=== PATIENT | male | born 1950 | race American Indian/Alaskan Native ===

== ENCOUNTER 2016-10-15 12:08 | Inpatient (IN) | payer MEDICARE ==
[2016-10-15 13:15] LABS: Basophils % (Auto) 1.4 % (0.0-1.8); Eosinophils % (Auto) 4.4 % (0.0-4.3); Hematocrit 28.3 % (35.5-45.6); Hemoglobin 9.2 gm/dl (11.8-15.2); Mean Corpuscular HGB Conc 33 % (32-34); Mean Corpuscular Hemoglobin 29 pg (28-32); Mean Corpuscular Volume 90 fl (84-94); Platelet Count 195 K/mm3 (140-440); Red Blood Count 3.15 M/mm3 (3.65-5.03); Red Cell Distribution Width 18.8 % (13.2-15.2); White Blood Count 9.5 K/mm3 (4.5-11.0)
--- NOTE | 2016-10-15 13:29 | XRay Report ---
CHEST XRAY, 2 VIEWS: History: Shortness of breath. Findings: There is mild cardiomegaly. Pulmonary vessels are within normal limits. The lungs are clear and fully expanded. No infiltrate, pleural effusion or pneumothorax. Normal thoracic cage. IMPRESSION: Mild cardiomegaly
[2016-10-15 13:59] LABS: Anion Gap TNR mmol/L; BUN/Creatinine Ratio TNR; Blood Urea Nitrogen TNR mg/dL (9-20); Calcium TNR mg/dL (8.4-10.2); Carbon Dioxide TNR mmol/L (22-30); Chloride TNR mmol/L (98-107); Glucose TNR mg/dL (75-100); Potassium TNR mmol/L (3.6-5.0); Sodium TNR mmol/L (137-145)
[2016-10-15 17:27] LABS: BUN/Creatinine Ratio 6.54; Calcium 8.3 mg/dL (8.4-10.2); Chloride 97.7 mmol/L (98-107)
[2016-10-15 17:34] LABS: Potassium 8.4 mmol/L (3.6-5.0)
[2016-10-15] MEDS ORDERED: PROVENTIL IH ONE (17:43)
[2016-10-15] MEDS ORDERED: D50W (25GM) IV ONE (17:48)
[2016-10-15] MEDS ORDERED: CALCIUM GLUCONATE 1,000 MG in NACL 0.9% 100 ML IV ONE (17:48)
[2016-10-15] MEDS ORDERED: SODIUM BICARBONATE IV ONE ×2 (17:48→18:03)
--- NOTE | 2016-10-15 18:32 | Emergency Department Report ---
ED General Adult HPI - General Chief complaint: Dyspnea/Respdistress Stated complaint: SOB Time Seen by Provider: 10/15/16 17:42 Source: patient Mode of arrival: Wheelchair Limitations: No Limitations - History of Present Illness Initial comments: The patient does complain of some shortness of breath and generalized weakness. The reason why he is here is because the dialysis center sent him for evaluation because of the above symptoms. He had missed 3 runs of dialysis. The patient is awake and able to state that he is in the hospital. He gives a variety of explanations as to why he missed dialysis such as he overslept or he got confused as to the day. He is not disoriented at this time. -: Gradual, week(s) - Related Data Home Medications Medication Instructions Recorded Confirmed Last Taken Atenolol [Atenolol] 1 tab PO DAILY 07/20/14 07/26/14 07/26/14 Enalapril Maleate 60 mg PO DAILY 07/20/14 07/26/14 07/26/14 NIFEdipine 90 mg PO DAILY 07/20/14 07/26/14 07/26/14 hydrALAZINE 100 mg PO BID 07/20/14 07/26/14 07/26/14 Allergies Allergy/AdvReac Type Severity Reaction Status Date / Time No Known Allergies Allergy Verified 10/15/16 12:33 ED Review of Systems ROS: Stated complaint: SOB Other details as noted in HPI Constitutional: weakness. denies: chills, fever Eyes: denies: eye pain, eye discharge, vision change ENT: denies: ear pain, throat pain Respiratory: shortness of breath. denies: cough, wheezing Cardiovascular: denies: chest pain, palpitations Endocrine: no symptoms reported Gastrointestinal: denies: abdominal pain, nausea, diarrhea Genitourinary: denies: urgency, dysuria Musculoskeletal: denies: back pain, joint swelling, arthralgia Skin: denies: rash, lesions Neurological: denies: headache, weakness, paresthesias Psychiatric: denies: anxiety, depression Hematological/Lymphatic: denies: easy bleeding, easy bruising ED Past Medical Hx - Past Medical History Hx Hypertension: Yes Hx Heart Attack/AMI: Yes Hx Diabetes: Yes Hx Renal Disease: Yes Hx Asthma: No Hx COPD: No Hx HIV: No - Surgical History Additional Surgical History: FISTULA LEFT ARM. HERNIA REPAIR - Social History Smoking Status: Never Smoker Substance Use Type: None - Medications Home Medications: Home Medications Medication Instructions Recorded Confirmed Last Taken Type Atenolol [Atenolol] 1 tab PO DAILY 07/20/14 07/26/14 07/26/14 History Enalapril Maleate 60 mg PO DAILY 07/20/14 07/26/14 07/26/14 History NIFEdipine 90 mg PO DAILY 07/20/14 07/26/14 07/26/14 History hydrALAZINE 100 mg PO BID 07/20/14 07/26/14 07/26/14 History ED Physical Exam - General Limitations: No Limitations General appearance: alert, in no apparent distress - Head Head exam: Present: atraumatic, normocephalic - Eye Eye exam: Present: normal appearance, PERRL, EOMI. Absent: scleral icterus - ENT ENT exam: Present: normal exam, mucous membranes moist - Neck Neck exam: Present: normal inspection - Respiratory Respiratory exam: Present: decreased breath sounds. Absent: respiratory distress - Cardiovascular Cardiovascular Exam: Present: regular rate, normal rhythm. Absent: systolic murmur, diastolic murmur, rubs, gallop - GI/Abdominal GI/Abdominal exam: Present: soft, normal bowel sounds. Absent: distended, tenderness, guarding, rebound, rigid - Rectal Rectal exam: Present: deferred - Extremities Exam Extremities exam: Present: normal inspection - Back Exam Back exam: Present: normal inspection - Neurological Exam Neurological exam: Present: alert, oriented X3, CN II-XII intact. Absent: motor sensory deficit - Psychiatric Psychiatric exam: Present: normal mood, flat affect - Skin Skin exam: Present: warm, dry, intact, normal color. Absent: rash ED Course Vital Signs 10/15/16 10/15/16 10/15/16 12:15 16:48 16:51 Temperature 98.2 F Pulse Rate 77 70 Pulse Rate [ Anterior Bilateral Throughout] Respiratory 24 16 Rate Respiratory Rate [Anterior Bilateral Throughout] Blood Pressure 105/63 100/63 100/63 O2 Sat by Pulse 96 96 95 Oximetry 10/15/16 10/15/16 10/15/16 17:00 17:11 17:21 Temperature Pulse Rate 68 68 68 Pulse Rate [ Anterior Bilateral Throughout] Respiratory 14 11 L 17 Rate Respiratory Rate [Anterior Bilateral Throughout] Blood Pressure 98/60 98/60 98/60 O2 Sat by Pulse 96 95 96 Oximetry 10/15/16 10/15/16 10/15/16 17:31 17:41 17:51 Temperature Pulse Rate 69 67 68 Pulse Rate [ 70 Anterior Bilateral Throughout] Respiratory 18 16 16 Rate Respiratory 16 Rate [Anterior Bilateral Throughout] Blood Pressure 98/60 98/60 98/60 O2 Sat by Pulse 94 95 100 Oximetry 10/15/16 10/15/16 18:00 18:16 Temperature Pulse Rate 69 Pulse Rate [ Anterior Bilateral Throughout] Respiratory 16 16 Rate Respiratory Rate [Anterior Bilateral Throughout] Blood Pressure 94/64 O2 Sat by Pulse 100 100 Oximetry - Reevaluation(s) Reevaluation #1: Dr. Rodriguez was notified of the patient's electrolytes (severe hyperk). He is being sent to dialysis now. 10/15/16 18:32 Reevaluation #2: Discussed with Dr. Carter. Patient will be admitted to the hospital service. 10/15/16 18:40 Reevaluation #3: Apparently the patient's first blood sample was inadequate. This is the reason why his labs were so late. 10/15/16 18:41 Reevaluation #4: The patient received the family aggressive hyperkalemia cocktail considering his severe hyperkalemia and acidosis. This was amply tolerated. Patient was breathing fine just prior to transfer to dialysis when he was reassessed by me. 10/15/16 18:42 ED Medical Decision Making - Lab Data Result diagrams: 10/15/16 12:47 10/15/16 16:44 Laboratory Results - last 24 hr 10/15/16 10/15/16 10/15/16 12:47 12:47 16:44 WBC 9.5 RBC 3.15 L Hgb 9.2 L Hct 28.3 L MCV 90 MCH 29 MCHC 33 RDW 18.8 H Plt Count 195 Lymph % (Auto) 15.8 Pettis % (Auto) 7.6 H Eos % (Auto) 4.4 H Baso % (Auto) 1.4 Lymph # 1.5 Pettis # 0.7 Eos # 0.4 Baso # 0.1 Seg Neutrophils % 70.8 H Seg Neutrophils # 6.7 Sodium TNR 136 L Potassium TNR 8.4 H* Chloride TNR 97.7 L Carbon Dioxide TNR 17 L Anion Gap TNR 30 BUN TNR 108 H Creatinine TNR 16.5 H Estimated GFR TNR 4 BUN/Creatinine Ratio TNR 6.54 Glucose TNR 132 H Calcium TNR 8.3 L Troponin T TNR - EKG Data -: EKG Interpreted by Me EKG shows normal: sinus rhythm, axis (left axis) Rate: tachycardia - EKG Data Interpretation: nonspecific ST-T wave gabrielle, other (low voltage) - Radiology Data interpreted by me: Cardiomegaly with mild CHF Critical Care Time: Yes Critical care time in (mins) excluding proc time.: 55 Critical care attestation.: If time is entered above; I have spent that time in minutes in the direct care of this critically ill patient, excluding procedure time. ED Disposition Clinical Impression: Hyperkalemia, Metabolic acidosis, increased anion gap, End stage renal failure on dialysis, Medical non-compliance Cardiomyopathy Qualifiers: Cardiomyopathy type: unspecified Qualified Code(s): I42.9 - Cardiomyopathy, unspecified Disposition: DC-09 OP ADMIT IP TO THIS HOSP Is pt being admited?: Yes Does the pt Need Aspirin: Yes Condition: Stable Referrals: PRIMARY CARE, [Primary Care Provider] - 3-5 Days Time of Disposition: 18:44
[2016-10-15] MEDS ORDERED: BABY ASPIRIN PO ONE (18:44)
[2016-10-15] MEDS ORDERED: NACL 0.9% 100 ML IV PRN (19:13)
[2016-10-16] MEDS ORDERED: BABY ASPIRIN PO ONE (01:00)
[2016-10-16] MEDS ORDERED: NACL 0.9% 250ML 250 ML IV ONE (05:34)
--- NOTE | 2016-10-16 05:49 | History and Physical Report ---
History of Present Illness Date of admission: 10/15/16 18:19 Chief complaint: I cant breathe, and they sent me here from dialysis History of present illness: 65 YO Male with ESRD on HD, HTN, PR, DM, presents to ED for evaluation. Pt states that he has been experiencing shortness of breath for the past 5 days with worsening symptoms over the past day. Pt acknowledges missing dialysis for the past week. Pt states the dialysis center staff sent him for evaluation because of the above symptoms. Pt denies fever, chills, CP, Palpitations, NVD, Syncope, Falls, Vertigo, productive cough, or recent ill contacts. Pt seen and evaluated in ED and found to be in respiratory distress. Pt placed on supplemental oxygen, Nephrology team consulted,and patient taken urgently to dialysis suite. Past History Past Medical History: ESRD, hypertension Past Surgical History: hernia repair, Other (AV Fistula) Social history: , lives with family. denies: smoking, alcohol abuse, prescription drug abuse Family history: hypertension Medications and Allergies Allergies Allergy/AdvReac Type Severity Reaction Status Date / Time No Known Allergies Allergy Verified 10/15/16 12:33 Home Medications Medication Instructions Recorded Confirmed Last Taken Type Atenolol [Atenolol] 1 tab PO DAILY 07/20/14 07/26/14 07/26/14 History Enalapril Maleate 60 mg PO DAILY 07/20/14 07/26/14 07/26/14 History NIFEdipine 90 mg PO DAILY 07/20/14 07/26/14 07/26/14 History hydrALAZINE 100 mg PO BID 07/20/14 07/26/14 07/26/14 History Active Meds: Active Medications Sodium Chloride (Nacl 0.9%) 100 mls @ 999 mls/hr IV YUKI PRN PRN Reason: Hypotension Review of Systems All systems: negative Cardiovascular: edema Respiratory: shortness of breath Exam - Constitutional Vitals: Temp Pulse Resp BP Pulse Ox 98.8 F 82 18 98/49 94 10/16/16 00:01 10/16/16 04:05 10/16/16 00:01 10/16/16 00:01 10/16/16 00:01 General appearance: Present: mild distress - EENT Eyes: Present: PERRL ENT: hearing intact, clear oral mucosa - Neck Neck: Present: supple, normal ROM - Respiratory Respiratory effort: labored Respiratory: bilateral: diminished - Cardiovascular Rhythm: regular Heart Sounds: Present: S1 & S2 - Extremities Extremity abnormal: edema Peripheral Pulses: within normal limits - Abdominal General gastrointestinal: Present: soft, non-tender, non-distended, normal bowel sounds Male genitourinary: Present: normal - Integumentary Integumentary: Present: clear, warm, dry - Musculoskeletal Musculoskeletal: generalized weakness - Psychiatric Psychiatric: appropriate mood/affect, intact judgment & insight - Neurologic Neurologic: CNII-XII intact, moves all extremities Results - Labs CBC & Chem 7: 10/15/16 12:47 10/15/16 16:44 Labs: Abnormal lab results 10/15/16 Range/Units 23:56 POC Glucose 143 H (70-105) Assessment and Plan - Patient Problems (1) Acute respiratory failure with hypoxemia Current Visit: Yes Status: Acute Plan to address problem: Supplemental oxygen, nebs, aspiration precautions, supportive care, dialysis for fluid overload (2) End stage renal failure on dialysis Current Visit: Yes Status: Acute Plan to address problem: Nephrology consulted, Urgent dialysis arranged from ED (3) Medical non-compliance Current Visit: Yes Status: Acute Plan to address problem: Pt counseled (4) Metabolic acidosis, increased anion gap Current Visit: Yes Status: Acute Plan to address problem: supportive care, urgent dialysis, repeat bmp (5) Hyperkalemia Current Visit: Yes Status: Acute Plan to address problem: EKG, telemetry monitoring, urgent dialysis. (6) DVT prophylaxis Current Visit: Yes Status: Acute
[2016-10-16] MEDS ORDERED: PROVENTIL IH PRN (05:57)
[2016-10-16] MEDS ORDERED: TYLENOL PO PRN (05:57)
[2016-10-16 06:05] LABS: BUN/Creatinine Ratio 5.6; Calcium 7.8 mg/dL (8.4-10.2); Chloride 96.5 mmol/L (98-107); Potassium 4.9 mmol/L (3.6-5.0)
--- NOTE | 2016-10-16 08:01 | Admit Criteria Form ---
Admission Criteria Documentation: GENERAL ADMISSION CRITERIA (Place 'X' for any and all applicable criteria): Admission is indicated for ANY ONE of the following: [ X]I. Hemodynamic instability as indicated by ANY ONE of the following(1)(2 )(3)(4)(5): [ ]a) Vital sign abnormality not readily corrected by appropriate treatment within 12 to 24 hours indicated by ANY ONE of the following: [ ]i) Hypotension [ ]ii) Symptomatic Tachycardia unresponsive to treatment (eg , analgesia, fluids, sedation as indicated) [ ]iii) Orthostatic vital sign changes unresponsive to treatment (eg, fluids) [X ]b) Vital sign abnormality that is severe indicated by ANY ONE of the following: [ X]i) Inadequate perfusion indicated by ANY ONE of the following: [ ]1) Lactic acidosis (greater than 2 mmol/L) [ ]2) New abnormal capillary refill (greater than 3 seconds) [ X]3) Other metabolic acidosis (arterial pH less than 7.35) not otherwise explained [ ]4) Reduced urine output [ ]5) Altered mental status [ ]6) Myocardial Ischemia [ ]v) Mean arterial pressure[A] less than 60 mm Hg [ ]vi) Mean arterial pressure[A] less than 70 mm Hg after 30 minutes of appropriate treatment (eg, fluid resuscitation) [ ]vii) IV inotropic or vasopressor medication required to maintain adequate blood pressure or perfusion [ ]viii) Sustained heart rate greater than 120 beats per minute in adult or child 6 years or older[B]] [ ]II. Hypertension requiring inpatient treatment as indicated by ANY ONE of the following(6)(7)(8): [ ]a) SBP greater than 220 mm Hg or DBP greater than 120 mm Hg despite treatment [ ]b) SBP greater than 140 mm Hg or DBP greater than 100 mm Hg with evidence of acute end organ damage as indicated by ANY ONE of the following: [ ]i) Encephalopathy [ ]ii) Acute renal failure as indicated by new onset of ANY ONE of the following(9)(10)(11)(12)(13): [ ]1) A 3-fold rise in serum creatinine from baseline [ ]2) Serum creatinine greater than 4 mg/dL ( 354 micromoles/L) with acute rise greater than 0.5 mg/dL (44.2 micromoles/L) [ ]3) Reduction of more than 75% in estimated glomerular filtration rate from baseline [ ]4) Estimated glomerular filtration rate less than 35 mL/min/1.73m2 (0.59 mL/sec/1.73m2) in child up to 18 years of age [ ]5) Cessation of urine output indicated by ALL of the following: [ ]A. Adequate volume status [ ]B. Inadequate urine output as indicated by ANY ONE of the following: [ ]a. Urine output less than 0.3 mL/kg/hr for 24 hours [ ]b. Anuria (urine output less than 0.1 mL/kg/hr) for 12 hours [ ]iii) Aortic dissection [ ]iv) Myocardial ischemia [ ]v) Left ventricular heart failure [ ]vi) Retinal hemorrhage [ ]vii) Other significant finding [ ]c) Hypertension in child requiring inpatient treatment as indicated by ALL of the following(14)(15)(16): [ ]i) Outpatient treatment not effective, not available, or not appropriate [ ]ii) SBP or DBP greater than 95th percentile for age [ ]iii) Evidence of acute end organ damage as indicated by ANY ONE of the following: [ ]1) Altered mental status [ ]2) Acute renal failure as indicated by new onset of ANY ONE of the following(9)(10)(11)(12)(13): [ ]A. A 3-fold rise in serum creatinine from baseline [ ]B. Serum creatinine greater than 4 mg/dL (354 micromoles/L) with acute rise greater than 0.5 mg/dL (44.2 micromoles/L) [ ]C. Reduction of more than 75% in estimated glomerular filtration rate from baseline [ ]D. Estimated glomerular filtration rate less than 35 mL/min/1.73m2 (0.59 mL/sec/1.73m2)in child up to 18 years of age [ ]E. Cessation of urine output indicated by ALL of the following: [ ]a. Adequate volume status [ ]b. Inadequate urine output as indicated by ANY ONE of the following: [ ]1) Urine output less than 0.3 mL/kg/hr for 24 hours [ ]2) Anuria (urine output less than 0.1 mL/kg/hr) for 12 hours [ ]3) Severe headache [ ]4) Visual disturbance [ ]5) Retinal hemorrhage [ ]6) Other significant finding [ ]III. Acute cardiac or peripheral ischemia as indicated by ANY ONE of the following: [ ]a) Acute coronary syndrome(17)(18) [ ]b) Acute peripheral ischemia (eg, pulseless, cool, mottled, or cyanotic extremity)(19) [ ]IV. Cardiac arrhythmias or findings of immediate concern indicated by ANY ONE of the following(20)(21): [ ]a) Heart rhythms that are inherently dangerous or unstable indicated by ANY ONE of the following(22)(23)(24): [ ]i) Resuscitated ventricular fibrillation or cardiac arrest [ ]ii) Ventricular escape rhythm [ ]iii) Sustained ventricular tachycardia (30 seconds or more of ventricular rhythm at greater than 100 beats per minute) [ ]iv) Nonsustained ventricular tachycardia and ANY ONE of the following: [ ]1) Suspected cardiac ischemia as cause or consequence of ventricular tachycardia [ ]2) In setting of acute myocarditis [ ]b) Unstable cardiac conduction defects indicated by ANY ONE of the following(24)(25)(26): [ ]i) Type II second-degree atrioventricular block [ ]ii) Third-degree atrioventricular block [ ]iii) New-onset left bundle branch block with suspected myocardial ischemia [ ]c) Any heart rhythm and ANY ONE of the following(22)(23)(27)(28)( 29): [ ] i) Continuous long-term ECG monitoring needed (eg, initiation of drug requiring monitoring for more than 24 hours) [ ] ii) Patient has automatic implanted cardioverter defibrillator that is repeatedly firing, malfunctioning, or in need of immediate adjustment of settings beyond the scope of ambulatory or observation care. [ ]d) Heart rhythms of concern due to ANY ONE of the following: [ ]i) Hypotension [ ]ii) Respiratory distress [ ]iii) Association with other significant symptoms (eg, bradycardia with syncope or ongoing dizziness, supraventricular tachycardia with chest pain) (27)(28) (30) [ ] V. Severe heart failure as indicated by ANY ONE of the following ( 31)(32): [ ]a) Respiratory distress [ ]b) Hypotension [ ]c) Anasarca (refractory to outpatient therapy) [ ]d) Cardiac arrhythmias of immediate concern [ ]e) Myocardial ischemia [ ]. Respiratory abnormalities, including ANY ONE of the following(33)(34) (35)(36): [ ]a) Respiratory rate greater than 30 breaths per minute unresponsive to treatment [A] [ ]b) New saturation of arterial oxygen less than 90% [ ]c) New partial pressure of carbon dioxide greater than 44 mm Hg ( 5.9 kPa) [ ]d) Supplemental oxygen or respiratory treatments needed that are new or not performable at other levels of care [ ]e) New-onset cyanosis [ ]f) Inability to protect airway [ ]g) Chronic lung disease with severe deterioration (not responsive to emergency and observation care treatment as appropriate) as indicated by ANY ONE of the following(34)(36 ): [ ]i) SaO2 5% below baseline in patient with chronic hypoxemia [ ]ii) New requirement for supplemental oxygen to keep SaO2 at baseline or acceptable level [ ]iii) Required supplemental oxygen performable only in acute inpatient setting [ ]iv) Severe airflow or ventilation abnormalities [ ]v) Previously mobile patient unable to walk between rooms [ ]vi Inability to eat or sleep due to dyspnea [ ]vii) Rapid rate of exacerbation onset [ ]viii) Altered mental status ]VII. Severe airflow or ventilation abnormalities (not responsive to emergency and observation care treatment as appropriate) as indicated by ANY ONE of the following(33)(34)(35)(37): [ ]a) PCO2 greater than 42 mm Hg (5.6 kPa) and pH less than 7.35 (new ) [ ]b) Documented PCO2 increased more than 5 mm Hg (0.7 kPa) from disease baseline [ ]c) Airflow measurements [B] less than 60% of previous best or predicted (eg, peak expiratory flow rate less than 300 L/minute) despite intensive emergent treatment [C] [ ]d) Required respiratory treatments that are performable only in acute inpatient setting [ ]VIII. Impending or actual respiratory arrest ( Also use Respiratory Failure GRG for severe respiratory disease and long-term mechanical ventilation patients) [ ]IX. Neurologic abnormalities, including ANY ONE of the following: [ ]a) New findings that suggest ANY ONE of the following: [ ]i) DIAMOND SORTER infection(38) [ ]ii) Cerebral bleeding, ischemia, or vasospasm(39)(40) [ ]iii) Increased intracranial pressure, hydrocephalus, or cerebral edema(41)(42)(43) [ ]iv) Spinal cord injury(44) [ ]b) Uncontrolled seizures(45) [ ]c) New-onset coma (eg, [place] coma scale score less than 9) or unexplained abnormal mental status (eg, Miguel coma scale score less than 14) [D](41)(46)(47) [ ]X. New-onset severe neurologic findings requiring inpatient care; examples include(42)(48)(49): [ ]a) Papilledema [ ]b) Cerebral edema [ ]c) Mass effect on CT scan [ ]XI. Suspected acute intra-abdominal process with peritoneal signs, abdominal mass, or similar findings (50)(51)(52) [ ]XII. Severe physiologic disorder remaining after emergency or observation level care (as appropriate) as indicated by ANY ONE of the following (53): [ ]a) Significant dehydration [ ]b) Diabetic ketoacidosis [ ]c) Hyperglycemic hyperosmolar state (eg, osmolality greater than 320 mOsm/kg (mmol/kg) [ ]d) Hypoglycemia [ ]e) Other (new) acid-base disorder with pH less than 7.35 or greater than 7.5(54) [ ]f) Thyroid storm (55) [ ]g) Myxedema coma (55) [ ]XIII. Abdominal abnormalities with ANY ONE of the following(56)(57): [ ]a) Absent bowel sounds with complete ileus [ ]b) Signs of intestinal obstruction or peritonitis [E] [ ]c) Nausea and vomiting that cannot be controlled with outpatient or observation care [ ]XIV. Acute renal failure as indicated by new onset of ANY ONE of the following(9)(10)(11)(12)(13): [ ]a) A 3-fold rise in serum creatinine from baseline [ ]b) Serum creatinine greater than 4 mg/dL (354 micromoles/L) with acute rise greater than 0.5 mg/dL (44.2 micromoles/L) [ ]c) Reduction of more than 75% in estimated glomerular filtration rate from baseline [ ]d) Estimated glomerular filtration rate less than 35 mL/min/ 1.73m2 (0.59 mL/sec/1.73m2) in child up to 18 years of age [ ]e) Cessation of urine output indicated by ALL of the following: [ ]i) Adequate volume status [ ]ii) Inadequate urine output as indicated by ANY ONE of the following: [ ]1) Urine output less than 0.3 mL/kg/hr for 24 hours [ ]2) Anuria (urine output less than 0.1 mL/kg/hr) for 12 hours [ ]XV. Significant uremic complications as indicated by ANY ONE of the following(58)(59)(60): [ ]a) Outpatient therapy is ineffective or not feasible for ANY ONE of the following: [ ]i) Severe heart failure [ ]ii) Severehypertension [ ]iii) Pleural effusion [ ]iv) Pericarditis or pericardial effusion [ ]b) Cardiac arrhythmias of immediate concern [ ]c) Intractable nausea or vomiting [ ]d) Recurrent seizures [ ]e) Encephalopathy [ ]f) Bleeding abnormalities (eg, platelet dysfunction) with active (eg, gastrointestinal) bleeding [ ]g) Dialysis indicated before long-term access or ambulatory arrangements can be made [ ]h) Significant metabolic or electrolyte abnormalities (eg, severe acidosis or hyperkalemia) [ ]XVI. High fever or other high-risk infection situation as indicated by ANY ONE of the following(61)(62)(63)(64): [ ]a) Outpatient and observation care antimicrobial treatment unavailable, not effective, or not appropriate [ ]b) Documented bacteremia [ ]c) Temperature greater than 40.5 degrees C (104.9 degrees F) ( oral) [ ]d) Temperature greater than 39.5 degrees C (103.1 degrees F) ( oral) or less than 36 degrees C (96.8 degrees F) (rectal) that does not respond to e treatment and observation care [ ] XVII. Temperature less than 95 degrees F (35 degrees C)(rectal)(65) [ ] XVIII. Severe nutritional abnormalities as indicated by ALL of the following (66)(67): [ ]a) Inability to tolerate or establish sufficient oral or other enteral nutrition in outpatient setting [ ]b) Parenteral nutrition regimen need that must be implemented on inpatient basis [ X] XIX. Severe electrolyte abnormalities indicated by ALL of the following(68 )(69)(70): [ X]a) Electrolytes and associated findings are not as expected for patient baseline or acceptable treatment effects. [ X]b) Severe abnormalities indicated by ANY ONE of the following: [ ]i) Sodium less than 130 mEq/L (mmol/L) (new) [ ]ii)Sodium less than 135 mEq/L (mmol/L) with ANY ONE of the following: [ ]1) Uncorrectable (to near normal or chronic baseline) after trial of outpatient and emergency treatment [ ]2) Altered mental status [ ]3) Seizures [ ]4) Severe medical etiology requiring inpatient management (eg, heart failure, hypovolemia) [ ]iii) Sodium greater than 155 mEq/L (mmol/L) [ ]iv) Sodium greater than 150 mEq/L (mmol/L) with ANY ONE of the following: [ ]1) Uncorrectable (to near normal or chronic baseline) with outpatient and emergency treatment [ ]2) Altered mental status [ ]3) Seizures [ ]4) Severe medical etiology (eg, hypovolemia, diabetes insipidus) [ ]v) Potassium less than 2.5 mEq/L (mmol/L) despite outpatient and emergency treatment [ ]vi) Potassium less than 3 mEq/L (mmol/L) with ANY ONE of the following: [ ]1) Weakness [ ]2) Cardiac abnormality (eg, arrhythmia, conduction disturbance) [ ]3) Cardiac ischemia [ ]4) Ileus [ ]5) Ongoing medical cause requiring inpatient management (eg, acute renal wasting or SIADH) [ ]6) Other severe symptoms [X]vii) Potassium greater than 6.5 mEq/L (mmol/L) [ ]viii) Potassium greater than 5 mEq/L (mmol/L) with ANY ONE of the following: [ ]1) Uncorrectable (to near normal or chronic baseline) with outpatient and emergency treatment [ ]2) Severe ECG findings [F] [ ]3) Acute worsening of renal failure (creatinine greater than 2.5 mg/dL (221 micromoles/L) or significant elevation for age and size) [ ]4) Severe weakness [ ]5) Severe medical etiology (eg, hemolysis, infection, drug overdose) [ ]ix) Calcium less than 7 mg/dL (1.75 mmol/L) despite outpatient and emergency treatment (72) [ ]x) Calcium less than 8 mg/dL (2 mmol/L) with significant symptoms or findings; examples include(72): [ ]1) Altered mental status [ ]2) Muscle spasms [ ]3) Seizures [ ]4) Breathing difficulty [ ]5) Cardiac abnormality (eg, arrhythmia or conduction disturbance) [ ]xi) Calcium greater than 14 mg/dL (3.5 mmol/L)(72) [ ]xii) Calcium greater than 12 mg/dL (3 mmol/L) with ANY ONE of the following(72): [ ]1) Uncorrectable (to near normal or chronic baseline) with outpatient and emergency treatment [ ]2) Significant dehydration or hypovolemia as indicated by ALL of the following(70)(73)(74): [ ]A. Not resolved with initial treatments [ ]B. Clinically significant dehydration as indicated by ANY ONE of the following: [ ]a. Vomiting refractory to outpatient treatment (ie, precluding oral rehydration) [ ]b. Inability to drink [ ]c. Hypernatremia or other electrolyte abnormality unable to be corrected with outpatient and emergency treatment [ ]d. Failure to remain hydrated with outpatient therapy [ ]e. Reduced urine output [ ]f. Hypotension [ ]g. Serious cause for dehydration requiring acute hospitalization (eg, bowel obstruction, increased intracranial pressure, infectious cause) [ ]h. Child with ANY ONE of the following(75): [ ]1) Severe abdominal tenderness [ ]2) Adequate care not available at home [ ]3) Severe dehydration ( greater than 9% loss of body weight) [ ]4) Significant symptoms or findings; examples include: [ ]A. Altered mental status [ ]B. Cardiac abnormality (eg, arrhythmia, conduction disturbance) [ ]C. Malignant etiology requiring inpatient treatment [ ]xiii) Phosphorus less than 1 mg/dL (0.32 mmol/L) [ ]xiv) Phosphorus less than 1.5 mg/dL (0.48 mmol/L) with ANY ONE of the following: [ ]1) Patient unresponsive to outpatient and emergency treatment [ ]2) Significant symptoms or findings; examples include: [ ]A. Weakness [ ]B. Altered mental status [ ]C. Breathing difficulty [ ]D. Seizures [ ]E. Rhabdomyolysis [ ]xv) Phosphorus greater than 10 mg/dL (3.2 mmol/L) [ ]xvi) Phosphorus greater than 4.5 mg/dL (1.45 mmol/L) (new) with ANY ONE of the following: [ ]1) Severe medical etiology (eg, crush injury, acute renal failure) [ ]2) Associated hypocalcemia with significant findings; examples include: [ ]A. Neurologic symptoms [ ]B. Altered mental status [ ]C. Muscle spasms [ ]D. Seizures [ ]E. Breathing difficulty [ ]F. Cardiac abnormality (eg, arrhythmia, conduction disturbance) [ ]xvii) Magnesium less than 1 mg/dL (0.41 mmol/L) [ ]xviii) Magnesium less than 1.5 mg/dL (0.62 mmol/L) with ANY ONE of the following: [ ]1) Patient unresponsive to outpatient and emergency treatment [ ]2) Associated hypocalcemia with significant findings; examples include: [ ]A. Altered mental status [ ]B. Muscle spasms [ ]C. Seizures [ ]D. Breathing difficulty [ ]E. Cardiac abnormality (eg, arrhythmia , conduction disturbance) [ ]3) Associated hypokalemia (potassium less than 3 mEq/L (mmol/L)) with risk of arrhythmia [ ]xix) Magnesium greater than 4 mEq/L (2 mmol/L) [ ]xx) Magnesium greater than 2.5 mEq/L (1.25 mmol/L) with significant symptoms or findings; examples include: [ ]1) Weakness [ ]2) Altered mental status [ ]3) Cardiac abnormality (eg, arrhythmia, conduction disturbance) [ ]4) Breathing difficulty [ ]5) Severe medical etiology (eg, renal failure, hypovolemia) [ ]xxi) Uric acid greater than 20 mg/dL (1190 micromoles/L)(76) [ ]xxii) Uric acid greater than 8 mg/dL (476 micromoles/L) with significant symptoms or findings of tumor lysis syndrome; examples include(76): [ ]1) Creatinine greater than 1.5 times upper limit of normal [ ]2) Cardiac abnormality (eg, arrhythmia, conduction disturbance) [ ]3) Seizure [ ]XX. Acute blood loss causing significant abnormality as indicated by ANY ONE of the following(77)(78): [ ]a) Hemoglobin less than 10 g/dL (100 g/L) (not baseline) [ ]b) Hematocrit less than 30% (0.30) (not baseline) [ ]c) Repeat hematocrit decreased more than 2% (0.02) [ ]d) Uncontrolled bleeding [ ]XXI. Severe anemia indicated by ANY ONE of the following(78)(79): [ ]a) Altered mental status [ ]b) Chest pain [ ]c) Exertional dyspnea [ ]d) Syncope [ ]e) Other findings suggesting inadequate perfusion [ ]f) Treatment with transfusion or volume replacement is ineffective at resolving ANY ONE of the following [G]: [ ]i) Tachycardia for age [ ]ii) Orthostatic vital sign changes as indicated by ANY ONE of the following(80): [ ]1) Fall in SBP of 20 mm Hg or more 1 to 3 minutes after patient sits or stands from recumbent position [ ]2) Fall in DBP of 10 mm Hg or more 1 to 3 minutes after patient sits or stands from recumbent position [ ]XXII. High-risk low platelet count as indicated by ANY ONE of the following( 81)(82): [ ]a) Severe or life-threatening bleeding (eg, intracranial, major gastrointestinal, or extensive mucosal bleeding), with any reduced platelet count [ ]b) Platelet count less than 20,000/mm3 (20 x109/L) with any active bleeding [ ]c) Platelet count less than 10,000/mm3 (10 x109/L) with minor purpura or petechiae [ ]d) Platelet count less than 5000/mm3 (5 x109/L) [ ]e) Low platelet count with hemolytic anemia [ ]XXIII. Disseminated intravascular coagulation(77)(83) [ ]XXIV. Severe adverse drug or systemic toxin reaction requiring inpatient treatment; examples include(84)(85): [ ]a) Serotonin syndrome(86) [ ]b) Neuroleptic malignant syndrome(86) [ ]c) Cholinergic syndrome with severe symptoms (eg, bronchorrhea, weakness, mental status changes, seizures) [ ]d) Sympathetic syndrome with severe symptoms (eg, seizures, mental status changes, cardiac dysrhythmias) [ ]e) Anticholinergic syndrome [ ]XXV. Severe pain requiring acute inpatient management as indicated by ALL of the following (87)(88)(89): [ ]a) Continuous or frequent (eg, every 2 to 4 hours) parenteral analgesics required [H] [ ]b) Rapid improvement expected from treatment or acute intervention (eg, surgery, anesthesia procedure) [ ]XXVI.Severe behavioral health issues judged unmanageable at a lower level of care (eg, residential) in a patient who is ANY ONE of the following(91) [ ]a) Acutely suicidal [ ]b) A danger to self (eg, self-mutilating or suicidal behavior) [ ]c) A danger to others (eg, assaultive or homicidal behavior) [ ]d) Incapacitated because of grave disability (eg, inability to provide for self at lower level of care) (92) [ ]XXVII. Inpatient monitoring needed; examples include(1)(3)(87)(93)(94)(95)(96 ): [ ]a) Vital signs, neurologic signs, or vascular checks more frequently than every 4 hours [ ]b) Cardiac or respiratory monitoring beyond the scope (eg, over 24 hours) of observation care [ ]c) Pulmonary artery catheter monitoring [ ]d) Suspected compartment syndrome(97) (98) [ ]e) Cerebral bleeding, hydrocephalus, or vasospasm monitoring [ ]f) Increased intracranial pressure or cerebral edema monitoring [ ]g) monitoring [ ]XXVIII. Treatment requiring inpatient care; examples include: [ ]a) IV fluid to replace significant ongoing losses (greater than 3 L/m2 per day)(53) [ ]b) High concentration oxygen (greater than 40%)(33)(99)(100) [ ]c) Frequent respiratory therapy (more frequently than every 4 hours) to maintain airflow rates greater than 60% of baseline(33)(99)(100) [ ]d) Epidural analgesia(87) [ ]e) IV anticoagulation, vasoactive, or antiarrhythmic medication(19 )(23) [ ]f) Acute thrombolytics (generally require 24 hours of observation )(101)(102) [ ]XXIX. Emergency procedures needed; examples include: [ ]a) Emergency inpatient surgery [ ]b) Temporary pacemaker placement(103) [ ]c) Chest tube placement with active evacuation (eg, suction, drainage)(104) [ ]d) Emergent cardioversion(105) [ ]e) Emergent cardiac or vascular procedures (eg, cardiac catheterization, angioplasty) (17)(18) [ ]f) Emergent dialysis access placement and institution(10)(106) [ ]g) Emergent pericardiocentesis(107) [ ]h) Emergent plasmapheresis or leukapheresis(83) [ ]i) Emergent tracheostomy The original [employer] content created by [employer] has been revised. The portions of the content which have been revised are identified through the use of italic text or in bold, and [facility] has neither reviewed nor approved the modified material. All other unmodified content is copyright [employer]. Please see references footnoted in the original [employer] edition 2016 Admission Criteria Met: Yes
--- NOTE | 2016-10-16 15:05 | Progress Note ---
Assessment and Plan Assessment and plan: (1) Acute respiratory failure with hypoxemia Current Visit: Yes Status: Acute Plan to address problem: Supplemental oxygen, nebs, aspiration precautions, supportive care, dialysis for fluid overload. Patient to be compliant with HD (2) End stage renal failure on dialysis Current Visit: Yes Status: Acute Plan to address problem: Nephrology consulted, Urgent dialysis arranged from ED (3) Medical non-compliance Current Visit: Yes Status: Acute Plan to address problem: Pt counseled (4) Metabolic acidosis, increased anion gap Current Visit: Yes Status: Acute Plan to address problem: supportive care, urgent dialysis, repeat bmp (5) Hyperkalemia Current Visit: Yes Status: Acute Plan to address problem: EKG, telemetry monitoring, urgent dialysis. K level Nl today-4.9 (6) DVT prophylaxis Current Visit: Yes Status: Acute History Interval history: Sob better. Hospitalist Physical - Physical exam Narrative exam: Lying comfortably - Constitutional Vitals: Temp Pulse Resp BP Pulse Ox 98 F 84 18 89/51 98 10/16/16 13:00 10/16/16 13:00 10/16/16 13:00 10/16/16 13:00 10/16/16 12:26 General appearance: Present: no acute distress - EENT Eyes: Present: PERRL, EOM intact ENT: hearing intact, clear oral mucosa - Neck Neck: Present: supple, normal ROM - Respiratory Respiratory effort: normal Respiratory: bilateral: CTA - Cardiovascular Heart rate: 70 Rhythm: regular - Extremities Extremities: no ischemia, pulses intact Peripheral Pulses: within normal limits - Abdominal General gastrointestinal: soft, non-tender, non-distended, normal bowel sounds - Psychiatric Psychiatric: appropriate mood/affect, intact judgment & insight - Allied Health Allied health notes reviewed: nursing, case management Results - Labs CBC & Chem 7: 10/17/16 07:13 10/17/16 07:13 Labs: Laboratory Last Values WBC 9.5 K/mm3 (4.5-11.0) 10/15/16 12:47 RBC 3.15 M/mm3 (3.65-5.03) L 10/15/16 12:47 Hgb 9.2 gm/dl (11.8-15.2) L 10/15/16 12:47 Hct 28.3 % (35.5-45.6) L 10/15/16 12:47 MCV 90 fl (84-94) 10/15/16 12:47 MCH 29 pg (28-32) 10/15/16 12:47 MCHC 33 % (32-34) 10/15/16 12:47 RDW 18.8 % (13.2-15.2) H 10/15/16 12:47 Plt Count 195 K/mm3 (140-440) 10/15/16 12:47 Lymph % (Auto) 15.8 % (13.4-35.0) 10/15/16 12:47 Saunders % (Auto) 7.6 % (0.0-7.3) H 10/15/16 12:47 Eos % (Auto) 4.4 % (0.0-4.3) H 10/15/16 12:47 Baso % (Auto) 1.4 % (0.0-1.8) 10/15/16 12:47 Lymph # 1.5 K/mm3 (1.2-5.4) 10/15/16 12:47 Saunders # 0.7 K/mm3 (0.0-0.8) 10/15/16 12:47 Eos # 0.4 K/mm3 (0.0-0.4) 10/15/16 12:47 Baso # 0.1 K/mm3 (0.0-0.1) 10/15/16 12:47 Seg Neutrophils % 70.8 % (40.0-70.0) H 10/15/16 12:47 Seg Neutrophils # 6.7 K/mm3 (1.8-7.7) 10/15/16 12:47 Sodium 142 mmol/L (137-145) 10/16/16 04:38 Potassium 4.9 mmol/L (3.6-5.0) D 10/16/16 04:38 Chloride 96.5 mmol/L (98-107) L 10/16/16 04:38 Carbon Dioxide 29 mmol/L (22-30) D 10/16/16 04:38 Anion Gap 21 mmol/L 10/16/16 04:38 BUN 60 mg/dL (9-20) H 10/16/16 04:38 Creatinine 10.7 mg/dL (0.8-1.5) H 10/16/16 04:38 Estimated GFR 6 ml/min 10/16/16 04:38 BUN/Creatinine Ratio 5.60 % 10/16/16 04:38 Glucose 98 mg/dL (75-100) 10/16/16 04:38 POC Glucose 143 (70-105) H 10/15/16 23:56 Calcium 7.8 mg/dL (8.4-10.2) L 10/16/16 04:38 Magnesium 1.90 mg/dL (1.7-2.3) 10/16/16 04:38 Troponin T TNR 10/15/16 12:47 Short CBC 10/17/16 Range/Units 07:13 WBC 8.3 (4.5-11.0) K/mm3 Hgb 9.7 L (11.8-15.2) gm/dl Hct 28.7 L (35.5-45.6) % Plt Count 164 (140-440) K/mm3 BMP 10/17/16 07:13 Sodium 138 Potassium 5.8 H Chloride 94.1 L Carbon Dioxide 23 BUN 70 H Creatinine 13.6 H Glucose 108 H Calcium 8.4
[2016-10-16] MEDS ORDERED: CALCIUM GLUCONATE 1,000 MG in NACL 0.9% 100 ML IV ONE (15:19)
[2016-10-16] MEDS ORDERED: ENALAPRIL MALEATE PO SCH (15:30)
[2016-10-16] MEDS ORDERED: ATENOLOL PO SCH (15:30)
[2016-10-16] MEDS ORDERED: PROCARDIA XL PO SCH (16:00)
[2016-10-16] MEDS: APRESOLINE PO SCH ×2 (16:55→21:43)
[2016-10-16] MEDS ORDERED: PROCRIT IV PRN (20:54)
[2016-10-16] MEDS ORDERED: NACL 0.9% 100 ML IV PRN (20:54)
[2016-10-16] MEDS ORDERED: HEPARIN 10,000 UNITS/10 ML IV PRN (20:54)
--- NOTE | 2016-10-16 21:03 | Consultation ---
History of Present Illness - Reason for Consult Consult date: 10/16/16 end stage renal disease, hyperkalemia Requesting physician: MINA HILL - History of Present Illness 5-year-old male who is well known to me with a history of type 2 diabetes mellitus, hypertension, complicated by end-stage renal disease on hemodialysis on a Thursday, and Thursday schedule. Patient dialyzes at [facility]. He says he woke up late on Thursday and missed dialysis. "It was too late to go". "The [place] fell and it threw me all off". I got my days missed up". Patient missed dialysis and Thursday and then again on Thursday as he thought it was Thursday. "What I did was lose [address] way". He denies any chest pain. No nausea or vomiting. No dizziness or diaphoresis. He's had progressively worsening shortness of breath and lower extremities swelling. Symptoms kept Worsening and so finally he came to the emergency room for further evaluation. Patient was found to have a potassium was 8.4 and in pulmonary edema and so I was called and ordered emergent dialysis which was done yesterday. Patient feels better now. He is still quite swollen though Past History Past Medical History: diabetes, ESRD, hypertension Past Surgical History: hernia repair, Other (AV Fistula, peritoneal dialysis catheter placement, peritoneal dialysis catheter removal,Repair of Perforated DU 2009,) Social history: (Patient is from his and lives alone), lives with family, other (Retired bakery sales clerk). denies: smoking (Quit smoking 40 years ago), alcohol abuse, prescription drug abuse, IV drug use Family history: CAD (Mother of heart Dx, ), diabetes (Fatyher of complications of Diabetes), hypertension Medications and Allergies Allergies Allergy/AdvReac Type Severity Reaction Status Date / Time No Known Allergies Allergy Verified 10/15/16 12:33 Home Medications Medication Instructions Recorded Confirmed Last Taken Type Atenolol [Atenolol] 1 tab PO DAILY 07/20/14 10/16/16 1 Day Ago History Enalapril Maleate [Vasotec] 60 mg PO DAILY 07/20/14 10/16/16 1 Day Ago History NIFEdipine XL [Procardia Xl] 90 mg PO QDAY 07/20/14 10/16/16 1 Day Ago History hydrALAZINE [Apresoline TAB] 100 mg PO BID 07/20/14 10/16/16 1 Day Ago History Active Meds: Active Medications Acetaminophen (Tylenol) 650 mg PO Q4H PRN PRN Reason: Pain MILD(1-3)/Fever >100.5/DOBBS Albuterol (Proventil) 1 mg IH Q6HRT PRN PRN Reason: Wheezing Atenolol (Tenormin) 100 mg PO QDAY [facility] Epoetin García (Procrit) 10,000 unit IV YUKI PRN PRN Reason: hemodialysis Heparin Sodium (Porcine) (Heparin 10,000 Units/10 Ml) 1,000 unit IV YUKI PRN PRN Reason: hemodialysis Hydralazine HCl (Apresoline) 100 mg PO BID [facility] Last Admin: 10/16/16 16:55 Dose: Not Given Sodium Chloride (Nacl 0.9%) 100 mls @ 999 mls/hr IV YUKI PRN PRN Reason: Hypotension Sodium Chloride (Nacl 0.9%) 100 mls @ 999 mls/hr IV YUKI PRN PRN Reason: Hypotension Lisinopril (Zestril) 20 mg PO QDAY [facility] Review of Systems All systems: negative (Constitutional: no fever or chills. No anorexia or weight loss. HEENT: No sore throat or sinus drainage no hearing or vision impairment . Cardiovascular: See history of present illness. Respiratory: No cough, sputum, shortness of breath, hemoptysis or wheezing. Gastrointestinal: No nausea, vomiting, has occasional loose bowel movement, abdominal pain, hematemesis or melena. Genitourinary: Patient makes very little urine. No frequency urgency dysuria or hematuria. hematologic: No abnormal bleeding or bruising. Integumentary: no pruritus or rash. Neurological: No headache no focal weakness or numbness, no syncope or seizures. Musculoskeletal: No joint pains no stiffness. Psychiatry: no anxiety but he admits to depression) Exam - Vital Signs Vital signs: Vital Signs Temp Pulse Resp BP Pulse Ox 98.2 F 77 24 105/63 96 10/15/16 12:15 10/15/16 12:15 10/15/16 12:15 10/15/16 12:15 10/15/16 12:15 - Physical Exam Narrative exam: Middle-aged -[place] male lying in bed in no acute distress HEENT normocephalic atraumatic, pupils equal reactive to light, pink, clear oropharynx Neck supple, no thyromegaly no jugular venous distention CVS S1-S2 regular rate rhythm without murmur, rub or gallop Chest mildly diminished breath sounds in lower zones Abdomen soft nondistended nontender no organomegaly no bruit bowel sounds present Extremities 2+ bilateral lower extremity edema no cyanosis or clubbing Genitourinary deferred Neuro awake, alert oriented x3 no gross deficit Results - Lab Results 10/17/16 07:13 10/17/16 07:13 Most recent lab results Calcium 7.8 mg/dL (8.4-10.2) L 10/16/16 04:38 Magnesium 1.90 mg/dL (1.7-2.3) 10/16/16 04:38 Assessment and Plan - Patient Problems (1) Anemia in end-stage renal disease Current Visit: Yes Status: Acute Plan to address problem: Give erythropoietin on dialysis (2) Fluid overload Current Visit: Yes Status: Acute Qualifiers: Hypervolemia type: H Plan to address problem: Fluid removal on dialysis. Would dialyze patient again tomorrow (3) Acute respiratory failure with hypoxemia Current Visit: Yes Status: Acute Plan to address problem: Secondary to pulmonary edema. Improved with fluid removal on dialysis (4) End stage renal failure on dialysis Current Visit: Yes Status: Acute Plan to address problem: Hemodialysis again in the morning for fluid removal solute clearance. (5) Hyperkalemia Current Visit: Yes Status: Acute Plan to address problem: Urgent dialysis was done for hyperkalemia and potassium has improved. We'll repeat potassium in the morning (6) Medical non-compliance Current Visit: Yes Status: Acute Plan to address problem: Discussed importance of adherence to dialysis. Patient would benefit from living with a family member. I called his at his request and left a message. (7) Metabolic acidosis, increased anion gap Current Visit: Yes Status: Acute Plan to address problem: Uremic acidosis. Improved with solute clearance on dialysis (8) Hypertensive chronic kidney disease with stage 5 chronic kidney disease or end stage renal disease Current Visit: Yes Status: Acute Plan to address problem: Blood pressure is now low. We will hold nifedipine and monitor blood pressure
[2016-10-17 07:40] LABS: Hematocrit 28.7 % (35.5-45.6); Hemoglobin 9.7 gm/dl (11.8-15.2); Mean Corpuscular HGB Conc 34 % (32-34); Mean Corpuscular Hemoglobin 30 pg (28-32); Mean Corpuscular Volume 89 fl (84-94); Platelet Count 164 K/mm3 (140-440); Red Blood Count 3.22 M/mm3 (3.65-5.03); Red Cell Distribution Width 19.6 % (13.2-15.2); White Blood Count 8.3 K/mm3 (4.5-11.0)
[2016-10-17 07:54] LABS: BUN/Creatinine Ratio 5.14; Calcium 8.4 mg/dL (8.4-10.2); Chloride 94.1 mmol/L (98-107); Phosphorous 7.3 mg/dL (2.5-4.5); Potassium 5.8 mmol/L (3.6-5.0)
--- NOTE | 2016-10-17 08:35 | Progress Note ---
Assessment and Plan - Patient Problems (1) End stage renal failure on dialysis Current Visit: Yes Status: Acute Plan to address problem: Hemodialysis again in this morning for fluid removal solute clearance. Should be okay to discharge after dialysis from my standpoint. I have instructed patient to go for his routine dialysis again tomorrow. (2) Hyperkalemia Current Visit: Yes Status: Acute Plan to address problem: Urgent dialysis was done for hyperkalemia and potassium had improved. Potassium again high this morning. We will dialyze today (3) Acute respiratory failure with hypoxemia Current Visit: Yes Status: Acute Plan to address problem: Secondary to pulmonary edema. Improved with fluid removal on dialysis (4) Fluid overload Current Visit: Yes Status: Acute Qualifiers: Hypervolemia type: H Plan to address problem: Fluid removal on dialysis. Would dialyze patient again this morning (5) Anemia in end-stage renal disease Current Visit: Yes Status: Acute Plan to address problem: Give erythropoietin on dialysis (6) Medical non-compliance Current Visit: Yes Status: Acute Plan to address problem: Discussed importance of adherence to dialysis. Will call his again this morning. Left her a message yesterday (7) Metabolic acidosis, increased anion gap Current Visit: Yes Status: Acute Plan to address problem: Uremic acidosis. Improved with solute clearance on dialysis (8) Hypertensive chronic kidney disease with stage 5 chronic kidney disease or end stage renal disease Current Visit: Yes Status: Acute Plan to address problem: Blood pressure is still low. We will also hold hydralazine and monitor blood pressure Subjective Date of service: 10/17/16 Principal diagnosis: End stage renal disease with hyperkalemia and fluid overload Interval history: Recent seen lying in bed. He is feeling better this morning. No chest pain or shortness of breath. Still has swelling Objective - Exam Narrative Exam: Middle-aged -[place] male lying in bed in no acute distress Neck supple, no thyromegaly no jugular venous distention CVS S1-S2 regular rate rhythm without murmur, rub or gallop Chest mildly diminished breath sounds in lower zones Abdomen soft nondistended nontender no organomegaly no bruit bowel sounds present Extremities 2+ bilateral lower extremity edema no cyanosis or clubbing Neuro awake, alert oriented x3 no gross deficit - Vital Signs Vital signs: Vital Signs - 12hr 10/16/16 10/16/16 21:37 21:59 Temperature 99.1 F Pulse Rate [ 83 Right Dorsalis Pedis] Respiratory 20 Rate Blood Pressure 102/57 [Right Arm] O2 Sat by Pulse 94 96 Oximetry - Lab 10/17/16 07:13 10/17/16 07:13 Most recent lab results Calcium 8.4 mg/dL (8.4-10.2) 10/17/16 07:13 Phosphorus 7.30 mg/dL (2.5-4.5) H 10/17/16 07:13 Magnesium 1.90 mg/dL (1.7-2.3) 10/16/16 04:38
[2016-10-17] MEDS ORDERED: NACL 0.9 (PRIMING MACHINE ONLY DIALYSIS) MC ONE (09:47)
[2016-10-17] MEDS: APRESOLINE PO SCH (10:00)
[2016-10-17] MEDS ORDERED: ZESTRIL PO SCH ×2 (10:00)
[2016-10-17] MEDS ORDERED: TENORMIN PO SCH (10:00)
--- NOTE | 2016-10-17 10:20 | Discharge Summary ---
Providers - Providers Date of Admission: 10/15/16 18:19 Date of discharge: 10/17/16 Attending physician: NICOLE RODRIGUEZ Primary care physician: TECHNICAL STAFF ENGINEER Hospitalization Reason for admission: worsening shortness of breath Condition: Stable Pertinent studies: Chest x-ray; mild cardiomegaly Procedures: Hemodialysis per schedule Hospital course: 65-year-old male patient with significant history of end-stage renal disease on hemodialysis hypertension coronary artery disease diabetes mellitus was admitted through emergency room with worsening shortness of breath, when he was sent from the hemodialysis unit Patient was noted to be in acute on chronic respiratory failure with hypoxemia Admitted to the hospital symptomatically managed Nephrology evaluated the patient received hemodialysis per schedule Patient had severe hyperkalemia which was corrected and had stat hemodialysis Patient's symptoms significantly improved on the day of discharge, patient has no complaints Vital signs are stable, [id number] evaluation disclosed examination done by me prior to discharge was unremarkable Patient is hemodynamically and clinically stable for discharge Strongly advised to comply with hemodialysis and medications and doctors visits Verbalized understanding Final diagnosis; Acute on chronic respiratory failure hypoxemic Acute hyperkalemia End-stage renal disease on hemodialysis Hypertension Medical noncompliance Metabolic acidosis Type 2 diabetes mellitus History of coronary artery disease Disposition: DC-01 TO HOME OR SELFCARE Time spent for discharge: 31 min Core Measure Documentation - Palliative Care Palliative Care/ Comfort Measures: Not Applicable - Core Measures Any of the following diagnoses?: none Exam - Constitutional Vitals: Temp Pulse Resp BP Pulse Ox 99.7 F H 75 20 99/59 97 10/17/16 07:30 10/17/16 07:30 10/17/16 07:30 10/17/16 07:30 10/17/16 07:30 General appearance: Present: no acute distress, well-nourished - EENT Eyes: Present: PERRL, EOM intact - Neck Neck: Present: supple, normal ROM - Respiratory Respiratory effort: normal Respiratory: bilateral: diminished, negative: rales, rhonchi, wheezing - Cardiovascular Rhythm: regular Heart Sounds: Present: S1 & S2 - Extremities Extremities: no ischemia, No edema Peripheral Pulses: within normal limits - Abdominal General gastrointestinal: Present: soft, non-tender, non-distended, normal bowel sounds - Integumentary Integumentary: Present: clear, warm - Musculoskeletal Musculoskeletal: strength equal bilaterally - Psychiatric Psychiatric: appropriate mood/affect, cooperative - Neurologic Neurologic: CNII-XII intact, moves all extremities Plan Activity: no restrictions Diet: renal Additional Instructions: Hemodialysis per schedule. Follow nephrology per schedule Follow up with: PRIMARY CARE, [Primary Care Provider] - 3-5 Days MASON LEAVITT MD [Staff Physician] - 7 Days Prescriptions: Atenolol [Tenormin] 100 mg PO QDAY #30 tablet hydrALAZINE [Apresoline TAB] 100 mg PO BID #60 tab Lisinopril [Zestril TAB] 20 mg PO QDAY #30 tablet
[2016-10-17 13:47] VITALS: BP 104/56
== END 2016-10-17 14:45 | disposition home or self-care (01) | DRG 682 ==
LOC: ED 12:08 → 4A 18:19 → 3A 10-16 18:12
PROVIDERS: ADMIT Internal Medicine; ATTEND Internal Medicine
PROC: 5A1D00Z (ICD-10-PCS; principal; 2016-10-15)
DX: I12.0 Hypertensive chronic kidney disease with stage 5 chronic kidney disease or end stage renal disease (principal); J96.01 Acute respiratory failure with hypoxia; N18.6 End stage renal disease; E87.2 Acidosis; I42.9 Cardiomyopathy, unspecified; E87.5 Hyperkalemia; I25.2 Old myocardial infarction; E11.22 Type 2 diabetes mellitus with diabetic chronic kidney disease; Z99.2 Dependence on renal dialysis; Z91.19 Patient's noncompliance with other medical treatment and regimen; Z82.49 Family history of ischemic heart disease and other diseases of the circulatory system; Z83.3 Family history of diabetes mellitus; D63.1 Anemia in chronic kidney disease; E87.79 Other fluid overload
CPT/HCPCS: 36415; 71020; 80048; 82962; 83735; 84100; 84484; 85025; 85027; 93005; 93010; 94644; 94760; 96374; 96375; J0610; J0885; J1644; J1815; J7030; J7050